=== PATIENT | male | born 1995 | race Caucasian/White ===

== ENCOUNTER 2016-04-09 09:25 | Emergency (ER) | payer SELFPAY ==
[~2016-04-09] VITALS: Ht 190.5 cm; Wt 85.4 kg
[~2016-04-09 09:25] MED LIST: ABILIFY30 MG PO; DEPAKOTE500 MG PO; DIFLUCAN50 MG PO; LEVOXYL50 MCG PO; NAPROSYN500 MG PO; PEN-VEE K,VEET500 MG PO; VENTOLIN HFA18 GM IH; VYVANSE70 MG PO; [UNRECOGNIZED DRUG - OTHER]; [UNRECOGNIZED DRUG - REMARK]; [UNRECOGNIZED DRUG - REMARK]; [UNRECOGNIZED DRUG - REMARK]; [UNRECOGNIZED DRUG - REMARK]; [UNRECOGNIZED DRUG - REMARK]
[2016-04-09 10:58] LABS: ADD MIUA? YES; BILIRUBIN NEGATIVE; BLOOD TRACE; COLOR YELLOW ((YELLOW)); GLUCOSE (STRIP) NEGATIVE; KETONES NEGATIVE; LEUKOCYTES LARGE; NITRITE NEGATIVE; PH, URINE 7.5 (5-8); PROTEIN (STRIP) 100; SPECIFIC GRAVITY 1.029 (1.000-1.030)
[2016-04-09 11:12] LABS: BACTERIA 1+ /HPF; CASTS NONE SEEN /LPF; CRYSTALS NONE SEEN; EPITHELIAL CELLS NONE SEEN /HPF; MUCUS NONE SEEN /LPF; RED BLOOD CELLS RARE /HPF (0-5); UCUL ADDED? YES; WHITE BLOOD CELLS TNTC /HPF (0-5)
[2016-04-09] MEDS ORDERED: PATANOL OP100 DROP/5 BOTH EYES (12:02)
[2016-04-09] MEDS ORDERED: FLONASE16 G1 BOTH NARES (12:02)
[2016-04-09] MEDS ORDERED: KEFLEX500 MG PO (12:02)
[2016-04-09 12:31] VITALS: BP 121/70
[2016-04-11 12:56] LABS: CHLAMYDIA TRACHOMATIS NEGATIVE; NEISSERIA GONORRHOEAE POSITIVE
== END 2016-04-09 12:32 | disposition home or self-care (01) ==
LOC: EME 09:25
PROVIDERS: Nurse Practitioner Family
DX: H10.13 Acute atopic conjunctivitis, bilateral (principal); N39.0 Urinary tract infection, site not specified; Z20.2 Contact with and (suspected) exposure to infections with a predominantly sexual mode of transmission; F17.200 Nicotine dependence, unspecified, uncomplicated
CPT/HCPCS: 81003; 87077; 87086; 87185; 87491; 87591; 99281; 99284; J0696